=== PATIENT | male | born 1995 | race Caucasian/White ===

== ENCOUNTER 2016-12-10 13:08 | Emergency (ER) | payer OTHER ==
[~2016-12-10] VITALS: Ht 180.3 cm; Wt 83.9 kg
[2016-12-10] MEDS ORDERED: ALLEGRA ALLERG180 MG PO (13:16)
[2016-12-10 16:04] VITALS: BP 129/84
== END 2016-12-10 16:06 | disposition home or self-care (01) ==
LOC: ER 13:08
DX: S61.412A Laceration without foreign body of left hand, initial encounter (principal); J45.909 Unspecified asthma, uncomplicated; Z87.891 Personal history of nicotine dependence; W26.8XXA Contact with other sharp object(s), not elsewhere classified, initial encounter; Y93.89 Activity, other specified; Y92.89 Other specified places as the place of occurrence of the external cause; Y99.9 Unspecified external cause status